=== PATIENT | female | born 1995 | race Caucasian/White ===

== ENCOUNTER 2020-04-17 14:03 | Emergency (ER) | payer MEDICAID ==
[~2020-04-17] VITALS: Ht 175.3 cm; Wt 54.0 kg
[2020-04-17] MEDS ORDERED: KETOROLAC 30MG/ML VIAL IV STA (14:56)
[2020-04-17] MEDS ORDERED: SODIUM CHLORIDE 0.9% 1,000 ML IV ONE (14:56)
[2020-04-17 15:43] LABS: CHLORIDE 105 mEq/L (98-107)
[2020-04-17 15:44] LABS: BASOPHILS % 0.6 % (0.0-2.0); EOSINOPHILS % 1.2 % (0.0-5.0); HEMATOCRIT. 43.1 % (36.0-48.0); HEMOGLOBIN. 14.8 g/dL (12.0-16.0); LYMPHOCYTES % 32.2 % (20.0-50.0); MEAN CORPUSCULAR HEMOGLOBIN 32.6 pg (28.0-32.0); MEAN CORPUSCULAR VOLUME 95.2 fL (81.0-99.0); MEAN PLATELET VOLUME 8.4 fl (7.4-10.4); MONOCYTES % 6.3 % (2.0-8.0); NEUTROPHILS % 59.7 % (40.0-76.0); PLATELET 202 x1000/uL (130-400); RED BLOOD CELL COUNT 4.52 mill/uL (4.2-5.4)
[2020-04-17 15:59] LABS: CLARITY URINE CLEAR (CLEAR); COLOR URINE YELLOW (YELLOW); KETONES URINE NEGATIVE (NEGATIVE); LEUKOCYTE ESTERASE URINE NEGATIVE (NEGATIVE); NITRITE URINE NEGATIVE (NEGATIVE); OCCULT BLOOD URINE NEGATIVE (NEGATIVE); PH URINE >=9.0 (4.5-8.0); PROTEIN URINE NEGATIVE (NEGATIVE); SPECIFIC GRAVITY URINE 1.015 (1.005-1.030)
[2020-04-17] MEDS ORDERED: IOHEXOL-300 100 ML BOTTLE ONE (16:18)
[2020-04-17] MEDS ORDERED: LEVOFLOXACIN 250MG TABLET PO ONE (17:45)
[2020-04-17] MEDS ORDERED: METRONIDAZOLE 500MG TABLET PO ONE (17:45)
[2020-04-17 18:25] VITALS: BP 110/78
== END 2020-04-17 18:27 | disposition home or self-care (01) ==
LOC: ER 14:03
DX: K52.9 Noninfective gastroenteritis and colitis, unspecified (principal); I49.9 Cardiac arrhythmia, unspecified; Z98.890 Other specified postprocedural states
CPT/HCPCS: 36415; 74177; 80053; 81003; 81025; 83690; 85025; 93005; 96361; 96374; 99285; J1885; J7030; Q9967

== ENCOUNTER 2020-04-26 12:14 | Inpatient (IN) | payer MEDICAID, OTHER ==
[~2020-04-26] VITALS: Ht 175.3 cm; Wt 57.6 kg
[2020-04-26] MEDS ORDERED: SODIUM CHLORIDE 0.9% 1,000 ML IV ONE (12:40)
[2020-04-26] MEDS ORDERED: MAGNESIUM/ALUMINUM HYDROXIDE/SIMETHICONE 30ML UDC PO STA (12:40)
[2020-04-26] MEDS ORDERED: DICYCLOMINE 10 MG/5 ML ORAL SYR PO STA (12:40)
[2020-04-26] MEDS ORDERED: VISCOUS LIDOCAINE 2% 15 ML UDC PO STA (12:40)
[2020-04-26] MEDS ORDERED: ONDANSETRON HCL 4MG/2ML INJ IV STA (12:40)
[2020-04-26 12:56] LABS: BASOPHILS % 0.6 % (0.0-2.0); EOSINOPHILS % 2.6 % (0.0-5.0); HEMATOCRIT. 46.5 % (36.0-48.0); HEMOGLOBIN. 16.1 g/dL (12.0-16.0); LYMPHOCYTES % 29.3 % (20.0-50.0); MEAN CORPUSCULAR HEMOGLOBIN 32.3 pg (28.0-32.0); MEAN CORPUSCULAR VOLUME 93.2 fL (81.0-99.0); MEAN PLATELET VOLUME 8.3 fl (7.4-10.4); MONOCYTES % 8.7 % (2.0-8.0); NEUTROPHILS % 58.8 % (40.0-76.0); PLATELET 224 x1000/uL (130-400); RED BLOOD CELL COUNT 4.99 mill/uL (4.2-5.4)
[2020-04-26] MEDS ORDERED: SODIUM CHLORIDE 0.9% 10ML VIAL ONE (13:00)
[2020-04-26] MEDS ORDERED: ATROPINE SULFATE 1MG/10ML SYR ONE (13:00)
[2020-04-26 13:01] LABS: CHLORIDE 103 mEq/L (98-107)
[2020-04-26 13:05] LABS: ETHANOL BLOOD < 10 mg/dL
[2020-04-26 13:27] LABS: HCG SCREEN NEGATIVE
[2020-04-26 14:32] LABS: CLARITY URINE CLEAR (CLEAR); COLOR URINE YELLOW (YELLOW); KETONES URINE NEGATIVE (NEGATIVE); LEUKOCYTE ESTERASE URINE NEGATIVE (NEGATIVE); NITRITE URINE NEGATIVE (NEGATIVE); OCCULT BLOOD URINE NEGATIVE (NEGATIVE); PROTEIN URINE NEGATIVE (NEGATIVE); SPECIFIC GRAVITY URINE 1.008 (1.005-1.030); UROBILINOGEN URINE 0.2 E.U./dL (0.2-1.0)
[2020-04-26 14:47] LABS: *AMPHETAMINES SCREEN URINE NEGATIVE (NEGATIVE); *BENZODIAZEPINES SCREEN URINE NEGATIVE (NEGATIVE); *COCAINE SCREEN URINE NEGATIVE (NEGATIVE); METHADONE URINE SCREEN NEGATIVE (NEGATIVE); OPIATES URINE SCREEN NEGATIVE (NEGATIVE); PHENCYCLIDINE URINE SCREEN NEGATIVE (NEGATIVE)
[2020-04-26 14:49] LABS: *BARBITURATES SCREEN URINE NEGATIVE (NEGATIVE)
[2020-04-26 14:50] LABS: CANNABINOID URINE SCREEN PRESUMTIVE POSITIVE (NEGATIVE)
[2020-04-26 17:00] VITALS: BP 145/98
[2020-04-26] MEDS: METOCLOPRAMIDE HCL 10MG/2ML VIAL IV SCH ×2 (17:24→23:43)
[2020-04-26] MEDS: SODIUM CHLORIDE 0.9% 1,000 ML IV SCH (17:24)
[2020-04-26] MEDS ORDERED: OMEP20CA14 MT (18:05)
[2020-04-26 20:00] VITALS: BP 107/68
[2020-04-26] MEDS ORDERED: CEFTRIAXONE 1 G PREMIX 50 ML IV SCH (20:30)
[2020-04-26] MEDS: FAMOTIDINE 20MG/2ML VIAL IV SCH (20:35)
[2020-04-26] MEDS: CEFTRIAXONE 1,000 MG in DEXTROSE 5% WATER 50 ML IV SCH (22:09)
[2020-04-27] VITALS: BP 108/62
[2020-04-27 04:00] VITALS: BP 112/64
[2020-04-27] MEDS: METOCLOPRAMIDE HCL 10MG/2ML VIAL IV SCH ×3 (05:49→18:13)
[2020-04-27] MEDS: SODIUM CHLORIDE 0.9% 1,000 ML IV SCH ×2 (05:50→15:54)
[2020-04-27 06:26] LABS: BASOPHILS % 0.6 % (0.0-2.0); EOSINOPHILS % 3.9 % (0.0-5.0); HEMATOCRIT. 41.9 % (36.0-48.0); HEMOGLOBIN. 14.5 g/dL (12.0-16.0); LYMPHOCYTES % 48.5 % (20.0-50.0); MEAN CORPUSCULAR HEMOGLOBIN 32.6 pg (28.0-32.0); MEAN CORPUSCULAR VOLUME 94.1 fL (81.0-99.0); MEAN PLATELET VOLUME 8.9 fl (7.4-10.4); MONOCYTES % 7.2 % (2.0-8.0); NEUTROPHILS % 39.8 % (40.0-76.0); PLATELET 202 x1000/uL (130-400); RED BLOOD CELL COUNT 4.45 mill/uL (4.2-5.4); RED CELL DISTRIBUTION WIDTH 13.1 % (11.6-14.6)
[2020-04-27 06:35] LABS: CHLORIDE 111 mEq/L (98-107)
[2020-04-27 06:43] LABS: HDL CHOLESTEROL 60 mg/dL (40-59); LDL CHOLESTEROL 85 mg/dL (5-100)
[2020-04-27 08:00] VITALS: BP 112/61
[2020-04-27] MEDS: FAMOTIDINE 20MG/2ML VIAL IV SCH ×2 (09:51→20:35)
[2020-04-27 12:00] VITALS: BP 112/61
[2020-04-27 16:00] VITALS: BP 105/72
[2020-04-27] MEDS ORDERED: SORBITOL 70% SOLN 30ML PO NR ×2 (16:00→20:00)
[2020-04-27 20:00] VITALS: BP 112/74
[2020-04-27] MEDS: CEFTRIAXONE 1,000 MG in DEXTROSE 5% WATER 50 ML IV SCH (20:35)
[2020-04-27] MEDS: ONDANSETRON HCL 4MG/2ML INJ IV PRN (21:05)
[2020-04-28] VITALS: BP 106/65
[2020-04-28] MEDS: METOCLOPRAMIDE HCL 10MG/2ML VIAL IV SCH ×5 (00:17→23:14)
[2020-04-28] MEDS: SODIUM CHLORIDE 0.9% 1,000 ML IV SCH ×3 (01:58→17:36)
[2020-04-28 04:00] VITALS: BP 110/67
[2020-04-28 08:00] VITALS: BP 121/73
[2020-04-28] MEDS: FAMOTIDINE 20MG/2ML VIAL IV SCH ×2 (08:45→22:47)
[2020-04-28] MEDS ORDERED: SORBITOL 70% SOLN 30ML PO SCH (10:45)
[2020-04-28] MEDS ORDERED: METOCLOPRAMIDE HCL 10MG/2ML VIAL IV SCH ×2 (10:45→14:00)
[2020-04-28] MEDS ORDERED: BISACODYL 5MG TABLET PO SCH (10:45)
[2020-04-28] MEDS: ONDANSETRON HCL 4MG/2ML INJ IV PRN (11:39)
[2020-04-28 12:00] VITALS: BP 123/76
[2020-04-28 12:43] LABS: BASOPHILS % 0.5 % (0.0-2.0); EOSINOPHILS % 5.4 % (0.0-5.0); HEMATOCRIT. 42.1 % (36.0-48.0); HEMOGLOBIN. 14.4 g/dL (12.0-16.0); LYMPHOCYTES % 38.3 % (20.0-50.0); MEAN CORPUSCULAR HEMOGLOBIN 32.6 pg (28.0-32.0); MONOCYTES % 6.4 % (2.0-8.0); NEUTROPHILS % 49.4 % (40.0-76.0); PLATELET 192 x1000/uL (130-400); RED BLOOD CELL COUNT 4.43 mill/uL (4.2-5.4); RED CELL DISTRIBUTION WIDTH 12.9 % (11.6-14.6)
[2020-04-28 13:02] LABS: CHLORIDE 110 mEq/L (98-107)
[2020-04-28 13:18] LABS: INR 1.1; PROTHROMBIN TIME 11.9 sec (9.6-11.0)
[2020-04-28 16:00] VITALS: BP 117/67
[2020-04-28] MEDS ORDERED: FENTANYL CITRATE/PF 50MCG/ML 2ML VIAL IV PRN (16:28)
[2020-04-28] MEDS ORDERED: DIAZEPAM 5 MG/ML 2ML CPJ IV PRN (16:30)
[2020-04-28] MEDS ORDERED: FENTANYL CITRATE/PF 50MCG/ML 2ML VIAL ONE (16:32)
[2020-04-28] MEDS ORDERED: MIDAZOLAM HCL 5 MG/5 ML VIAL ONE (16:32)
[2020-04-28] MEDS ORDERED: MIDAZOLAM HCL 5 MG/5 ML VIAL IV PRN (16:32)
[2020-04-28] MEDS ORDERED: DIAZEPAM 5 MG/ML 2ML CPJ ONE ×2 (16:35→16:44)
[2020-04-28] MEDS ORDERED: DIPHENHYDRAMINE 50MG/ML VIAL IV PRN (16:47)
[2020-04-28] MEDS ORDERED: DIPHENHYDRAMINE 50MG/ML VIAL ONE (16:52)
[2020-04-28 20:00] VITALS: BP 108/66
[2020-04-28] MEDS: CEFTRIAXONE 1,000 MG in DEXTROSE 5% WATER 50 ML IV SCH (22:46)
[2020-04-28] MEDS: SERTRALINE HCL 25MG TABLET PO SCH (22:46)
[2020-04-29] VITALS: BP 111/74
[2020-04-29] MEDS: SODIUM CHLORIDE 0.9% 1,000 ML IV SCH ×2 (00:46→08:40)
[2020-04-29 04:00] VITALS: BP 112/76
[2020-04-29] MEDS: METOCLOPRAMIDE HCL 10MG/2ML VIAL IV SCH ×4 (05:08→23:10)
[2020-04-29 08:00] VITALS: BP 115/70
[2020-04-29] MEDS: FAMOTIDINE 20MG/2ML VIAL IV SCH ×2 (08:40→21:25)
[2020-04-29] MEDS: SERTRALINE HCL 25MG TABLET PO SCH (08:40)
[2020-04-29 12:00] VITALS: BP 114/61
[2020-04-29] MEDS ORDERED: PANT40SU MT (12:15)
[2020-04-29] MEDS ORDERED: METO5TAB86 MT (12:15)
[2020-04-29] MEDS ORDERED: SERT25TA MT (12:15)
[2020-04-29 16:00] VITALS: BP 135/72
[2020-04-29] MEDS: AZITHROMYCIN 500 MG TABLET PO SCH (16:05)
[2020-04-29 20:00] VITALS: BP 119/72
[2020-04-29] MEDS: SODIUM CHLORIDE 0.45% 1,000 ML IV SCH (21:26)
[2020-04-30] VITALS: BP 109/55
[2020-04-30 04:00] VITALS: BP 110/75
[2020-04-30] MEDS: METOCLOPRAMIDE HCL 10MG/2ML VIAL IV SCH ×2 (05:05→12:29)
[2020-04-30] MEDS: SODIUM CHLORIDE 0.45% 1,000 ML IV SCH ×2 (05:06→12:42)
[2020-04-30 08:00] VITALS: BP 109/71
[2020-04-30] MEDS ORDERED: DIATR MEGLU/DIATRIZOATE SOLN 30ML PO SCH (09:00)
[2020-04-30 09:06] LABS: SACCHAROMYCES CEREVISIAE IGG 28.4 Units (0.0-24.9)
[2020-04-30] MEDS: FAMOTIDINE 20MG/2ML VIAL IV SCH (09:27)
[2020-04-30] MEDS: SERTRALINE HCL 25MG TABLET PO SCH (09:27)
[2020-04-30 12:00] VITALS: BP 114/79
[2020-04-30] MEDS: AZITHROMYCIN 500 MG TABLET PO SCH (12:29)
[2020-04-30 13:10] LABS: ATYPICAL pANCA <1:20 titer (Neg:<1:20)
[2020-04-30] MEDS ORDERED: AZIT500T3 MT (14:48)
[2020-04-30 16:00] VITALS: BP 106/66
[2020-04-30 17:11] VITALS: BP 106/66
[2020-05-05 17:06] LABS: OVA & PARASITE EXAM Final report (.)
== END 2020-04-30 18:40 | disposition home or self-care (01) | DRG 248 ==
LOC: ER 12:40 → EDBEDREQSVC 13:58 → EDBEDREQ 13:58 → EDBEDREQTM 13:58 → 6EST 14:55 → EDBEDREQ 15:04 → EDBEDREQTM 15:04 → ENRESERV 15:37
PROVIDERS: ADMIT Family Medicine; ATTEND Family Medicine
PROC: 0DBB8ZX Excision of Ileum, Via Natural or Artificial Opening Endoscopic, Diagnostic (ICD-10-PCS; principal; 2020-04-28)
PROC: 0DBE8ZX Excision of Large Intestine, Via Natural or Artificial Opening Endoscopic, Diagnostic (ICD-10-PCS; 2020-04-28)
DX: A04.5 Campylobacter enteritis (principal); E86.0 Dehydration; Q43.8 Other specified congenital malformations of intestine; F41.9 Anxiety disorder, unspecified; E87.1 Hypo-osmolality and hyponatremia; F17.210 Nicotine dependence, cigarettes, uncomplicated; F12.188 Cannabis abuse with other cannabis-induced disorder; K59.00 Constipation, unspecified; F32.9 Major depressive disorder, single episode, unspecified; E44.1 Mild protein-calorie malnutrition; Z68.1 Body mass index [BMI] 19.9 or less, adult
CPT/HCPCS: 36415; 74176; 80048; 80053; 80061; 80305; 80320; 81003; 82270; 82705; 84703; 85025; 86256; 86671; 87015; 87045; 87177; 87209; 87426; 87427; 87449; 87493; 88305; 89055; 93005; 99285; J0461; J0696; J1200; J2250; J2405; J2765; J3010; J3490; J7030; J7060; Q9963; G0480